=== PATIENT | female | born 1985 | race Caucasian/White ===

== ENCOUNTER → 2018-03-07 | Outpatient (CLI) | payer BC ==
[~2018-03-07] MED LIST: IOHEXOL 240 MG/ML 50ML VIAL. ONE; IOHEXOL 300 MG/ML 75 ML VIAL. IV ONE
--- NOTE | 2018-03-07 16:23 | RAD ---
Indication: Right upper quadrant pain for 2 weeks, nausea Technique: Axial images and coronal and sagittal reformatted images are provided. 74 mL of iodinated contrast was administered intravenously along with oral contrast. No comparison is available. One or more of the following individualized dose reduction techniques were utilized for this examination: 1. Automated exposure control 2. Adjustment of the mA and/or kV according to patient size 3. Use of iterative reconstruction technique Findings: The lung bases are clear. There is no pleural effusion. The heart is not enlarged. There is mild fatty infiltration of the liver. Gallbladder is unremarkable. Spleen is not enlarged. Pancreas and adrenals are unremarkable. Kidneys are symmetrically perfused. Aorta is normal caliber. There is questionable mural thickening in the proximal duodenum and possibly some gastric mural thickening distally. Correlate with any concern for duodenitis and gastritis or ulcer. The included small bowel and colon otherwise are grossly unremarkable. Bony structures are intact. Exam is limited to the abdomen, imaging of the pelvis was not requested or performed. IMPRESSION: 1. Questionable mural thickening in the proximal duodenum and possibly distal stomach, correlate with any concern for duodenitis, ulcer, or mass. Consider endoscopy if further workup is required. 2. Mild fatty infiltration of the liver. Electronically signed by: Raymond Parmar MD (03/07/2018 4:20 PM) [id number]
== END | disposition home or self-care (01) ==
LOC: CT 14:22
PROVIDERS: ATTEND Nurse Practitioner Family
DX: K76.0 Fatty (change of) liver, not elsewhere classified (principal)
CPT/HCPCS: 74160; Q9966; Q9967